=== PATIENT | female | born 1950 | race Two or more races ===

== ENCOUNTER 2022-05-18 22:49 | Emergency (ER) | payer MEDICARE, OTHER ==
[~2022-05-18] VITALS: Ht 157.5 cm; Wt 90.7 kg
--- NOTE | 2022-05-18 22:50 | NUR ---
[id number] from home for back pain and leg pain, on otc, no relief. PATIENT IS AAOX4. ABLE TO MAKE NEEDS KNOWN. ATTACHED TO MONITOR. VITALS CHECKED.
[2022-05-18] MEDS ORDERED: CARISOPRODOL 350 MG TABLET PO ONE (23:30)
[2022-05-18] MEDS ORDERED: DEXAMETHASONE SOD PHOSPHATE 4 MG/ML VIAL IM ONE (23:30)
[2022-05-18] MEDS ORDERED: HYDROMORPHONE 1 MG/1 ML DISP.SYRIN IM ONE (23:30)
[2022-05-18] MEDS ORDERED: DEXAMETHASONE SOD PHOSPHATE 10 MG/ML VIAL ONE (23:42)
[2022-05-18] MEDS ORDERED: CARISOPRODOL 350 MG TABLET ONE (23:43)
[2022-05-18] MEDS ORDERED: HYDROMORPHONE 1 MG/1 ML DISP.SYRIN ONE (23:43)
--- NOTE | 2022-05-19 01:28 | NUR ---
Patient discharged to home in stable condition. Written and verbal after care instructions given. Patient verbalizes understanding of instruction.
[2022-05-19 01:42] VITALS: BP 145/94
== END 2022-05-19 01:10 | disposition home or self-care (01) ==
LOC: ER 22:49
DX: M54.42 Lumbago with sciatica, left side (principal); I10 Essential (primary) hypertension
CPT/HCPCS: 99284; 72131; 96372 ×2; J1100; J1170